=== PATIENT | female | born 1975 ===

== ENCOUNTER → 2018-06-28 21:13 | Outpatient (REF) | payer OTHER, SELFPAY ==
[2018-07-01 13:41] LABS: QuantiFERON TB POSITIVE (Negative)
== END ==
LOC: LAB 21:13
PROVIDERS: Visit Provider Radiology Diagnostic Radiology
DX: R76.12 Nonspecific reaction to cell mediated immunity measurement of gamma interferon antigen response without active tuberculosis (principal)
CPT/HCPCS: 86480